=== PATIENT | male | born 1960 | race Caucasian/White ===

== ENCOUNTER 2020-10-25 11:58 | Emergency (ER) | payer MEDICAID, SELFPAY ==
--- NOTE | ~2020-10-25 | XR_ITS ---
EXAMINATION: XR abdomen/kub 1V EXAM DATE: 10/25/2020 12:45 INDICATION: Upper abdominal pain. TECHNIQUE: Frontal projection of the upper abdomen, frontal projection lower abdomen/pelvis for inter pretation. There is no prior study for comparison. FINDINGS: There is expected amount of colonic stool and gas. No small bowel dilation, nonobstructiv e bowel gas pattern. Couple of right pelvic calcifications probably phleboliths. There is no organ omegaly suspected. Mild lumbar dextroscoliosis and mild to moderate spondylosis. IMPRESSION: Unremarkable abdomen x-ray exam. Reviewed, dictated and finalized at location A.
--- NOTE | ~2020-10-25 | XR_ITS ---
EXAMINATION: XR chest 2V DATE: 10/25/2020 12:24 INDICATION: Chest discomfort. TECHNIQUE: Frontal and lateral views of the chest were obtained. COMPARISON: None. FINDINGS: The chest demonstrates clear lungs without pneumonia, pleural effusion, or pneumothorax. Th e heart size is normal. IMPRESSION: 1. No acute cardiopulmonary disease. Reviewed, dictated and finalized at location A.
[2020-10-25 12:00] VITALS: BP 151/83; PULSE 98; RESP 20; TEMP 36.8; O2SAT 98
--- NOTE | 2020-10-25 12:06 | ECG_ITS ---
Measurements Intervals [place] Rate: 92 P: 37 FL: 128 QRS: 30 QRSD: 87 T: 63 QT: 330 QTc: 410 Interpretive Statements SINUS RHYTHM BASELINE WANDER- V2, V5 NORMAL ECG Electronically Signed On 10-25-2020 16:10:46 CDT by Ugo Waldron D.O.
--- NOTE | 2020-10-25 12:18 | ED.GENADULT ---
HPI - General Adult General Chief complaint: Chest Pain Stated complaint: congestion Time Seen by Provider: 10/25/20 12:15 Source: patient and RN notes reviewed Mode of arrival: ambulatory Limitations: no limitations History of Present Illness HPI narrative: 60-year-old male presents with concern for 3-day history of the mid sternal, epigastric chest pain. Reports pain is mild at rest, worsens when he lays flat. Reports when he lays flat he also has shortness of breath. Denies shortness of breath with exertion. Reports mid back pain. Denies nausea, vomiting, diarrhea, constipation. Denies fever. He reports using Tums with no relief. MD complaint: Chest pain Related Data Allergies Allergy/AdvReac Type Severity Reaction Status Date / Time gluten Allergy Other Verified 10/25/20 12:45 yellow dye AdvReac Vomiting Verified 10/25/20 12:45 Review of Systems Review of Systems: Narrative: CONSTITUTIONAL: Denies malaise, chills, sweats, or fever. EYES: Denies visual changes, redness, or discharge. ENT: Denies rhinorrhea, congestion, sinus pain, otalgia or sore throat. CARDIOVASCULAR: Reports midsternal chest pain. Denies palpitations, or edema. RESPIRATORY: Denies cough. Reports dyspnea when supine. GASTROINTESTINAL: Reports epigastric pain. Denies nausea, vomiting, diarrhea, bloody, or mucous stools. GENITOURINARY: Denies dysuria or hematuria. SKIN: Denies rash or itching. MUSCULOSKELETAL: Denies myalgia. Reports mid back pain NEUROLOGIC: Denies numbness, weakness, or headache. All systems reviewed & are unremarkable except as noted in HPI and below PMFSH Comments At time of signature, agree with nursing past medical, surgical, social and family history. There is no relevant family history pertinent to the presenting complaint Exam Narrative: Exam Narrative: GENERAL: Well-appearing, well-nourished, and in no acute distress. HEAD: Normocephalic, atraumatic. EYES: PERRLA, conjunctivae clear ENT: Nares clear. Mucous membranes moist. NECK: Supple. No lymphadenopathy. No jugular venous distension, thyromegaly, or carotid bruits. Carotids were easily palpable bilaterally. CHEST: No respiratory distress. Clear to auscultation. No bony deformities, no asymmetry. Speaks in full sentences. HEART: Regular rate and rhythm. No murmur heard. Normal peripheral pulses. ABDOMEN: Soft, nondistended, normal active bowel sounds, no palpable masses. Right lower quadrant and right upper quadrant tenderness SKIN: Warm, dry, no rash. NEURO: Alert and oriented x3. PSYCH: Normal mood and affect Course Course Emergency Course: Discussed with patient findings of EKG, chest x-ray. Discussed option of doing a KUB, patient would like to do a KUB. Discussed findings of KUB with patient, discussed option of further evaluation emergency department, patient refuses at this time to seek care in emergency department. Reports he will follow-up with his primary care provider, understands reasons he should go to the ER if symptoms worsen. Patient is aware of, understands and agrees to treatment plan. Anticipatory guidance given. Patient agrees to follow-up as directed and is aware of reasons to seek care at the emergency department. Portions of this record may have been created with voice recognition software Vital Signs Vital signs: Vital Signs Temperature 98.3 F 10/25/20 12:00 Pulse Rate 98 10/25/20 12:00 Respiratory Rate 20 10/25/20 12:00 Blood Pressure 151/83 H 10/25/20 12:00 Pulse Oximetry 98 10/25/20 12:00 Temperature 98.3 F 10/25/20 12:00 Pulse Rate 98 10/25/20 12:00 Respiratory Rate 20 10/25/20 12:00 Blood Pressure 151/83 H 10/25/20 12:00 Pulse Oximetry 98 10/25/20 12:00 Reviewed. Patient has history of hypertension Medical Decision Making MDM Narrative Medical decision making narrative: Exam findings and imaging show no acute concerns or changes; patient is non-toxic appearing and is in no distress. Patient
== END 2020-10-25 13:05 | disposition home or self-care (01) ==
PROVIDERS: Emergency Provider Nurse Practitioner; PCP Physician Assistant
DX: R10.13 Epigastric pain (principal); M19.90 Unspecified osteoarthritis, unspecified site
CPT/HCPCS: 71046; 74018; 93005; 99203; G0463